=== PATIENT | male | born 1960 | race Caucasian/White ===

== ENCOUNTER → 2016-04-15 | Outpatient (CLI) | payer OTHER ==
[~2016-04-15] MED LIST: ASCORBIC ACID500 MG PO; HUMULIN 70100 UNIT/1 SQ; LEVEMIR100 UNIT/1 SQ; NEURONTIN DPS100 MG PO; NOVOLIN 70100 UNITS/ SQ; OCUVITE SOFTGE1 EACH PO; VITAMIN E400 UNI3 PO
== END | disposition home or self-care (01) ==
LOC: RAD.S 12:12
DX: N20.0 Calculus of kidney (principal)